=== PATIENT | male | born 1980 | race Caucasian/White ===

== ENCOUNTER 2020-05-12 16:22 | Outpatient (CLI) | payer OTHER, SELFPAY ==
--- NOTE | ~2020-05-12 | XR_ITS ---
EXAMINATION: XR chest 2V 05/12/2020 16:56 INDICATION: Chest pain and shortness of breath PROCEDURE: 2 view chest COMPARISON: Comparison to multiple prior studies sequentially, with oldest reviewed study dated 03/06. FINDINGS: The lungs are clear. The cardiomediastinal silhouette is within normal limits. There are no pleural effusions. There is no pneumothorax suspected. IMPRESSION: 1: NO ACUTE CARDIOPULMONARY DISEASE. Reviewed, dictated and finalized at location A.
== END 2020-05-12 16:23 | disposition home or self-care (01) ==
PROVIDERS: PCP Family Medicine; Visit Provider Physician Assistant
DX: R07.89 Other chest pain (principal)
CPT/HCPCS: 71046

== ENCOUNTER 2020-11-12 16:23 | Outpatient (CLI) | payer OTHER, SELFPAY ==
--- NOTE | ~2020-11-12 | CT_ITS ---
EXAMINATION: CT abdomen pelvis wo con DATE: 11/12/2020 17:04 INDICATION: Right lower quadrant pain TECHNIQUE: Computed tomography (CT) of the abdomen and pelvis was performed without intravenous contr ast. The dose-length product (DLP) was 1519.57 mGy-cm. Automated exposure control and iterative recon struction technique were employed. COMPARISON: 12/17/2008 FINDINGS: A chronic 4 mm nodule of the left lower lobe is consistent with old granulomatous disease. The heart size is normal. The liver, spleen, pancreas, gallbladder, and adrenal glands are normal. Th ere is chronic mild atrophy of the left kidney compared to the right. No stones are identified in the kidneys, ureters, or bladder. There is no hydronephrosis or hydroureter. No pathologically enlarged abdominal or pelvic lymph nodes are identified. There is no free intraperitoneal gas or evidence of b owel obstruction. The appendix is normal. There is mild lumbar spondylosis. There are fat-containing umbilical and periumbilical hernias. IMPRESSION: 1. No CT correlate for the patient's symptoms. 2. Chronic mild atrophy of the left kidney. Reviewed, dictated and finalized at location A. COOK
== END 2020-11-12 16:24 | disposition home or self-care (01) ==
PROVIDERS: PCP Family Medicine; Visit Provider Family Medicine
DX: R10.31 Right lower quadrant pain (principal); M47.816 Spondylosis without myelopathy or radiculopathy, lumbar region; K42.9 Umbilical hernia without obstruction or gangrene
CPT/HCPCS: 74176

== ENCOUNTER → 2021-11-21 11:30 | Outpatient (CLI) | payer OTHER, SELFPAY ==
--- NOTE | ~2021-11-21 | MR_ITS ---
EXAMINATION: MR lumbar spine wo con DATE: 11/21/2021 12:11 INDICATION: Lumbar radiculopathy. TECHNIQUE: Magnetic resonance imaging (MRI) of the lumbar spine was performed without intravenous con trast. Sequences included sagittal T2-weighted FSE, sagittal T2-weighted FS FSE, sagittal T1-weighted FSE, and axial T2-weighted FSE. COMPARISON: Lumbar spine MRI 08/18/2019, CT abdomen and pelvis 11/12/2020 FINDINGS: Bone alignment is normal. There are Schmorl's nodes of the superior endplates of L2 and L3. There are chronic bilateral L5 pars defects. Intervertebral disc heights are normal. The distal spin al cord signal intensity is normal. The conus medullaris is at T12-L1. There is moderate atrophy of l eft kidney. The following disc levels are specifically discussed: L1-L2: The disc does not extend beyond the endplate margin. There is no facet joint osteoarthritis. T here is no neural foraminal stenosis. There is no central canal stenosis. L2-L3: The disc does not extend beyond the endplate margin. There is mild bilateral facet joint osteo arthritis. There is no neural foraminal stenosis. There is no central canal stenosis. L3-L4: The disc does not extend beyond the endplate margin. There is mild bilateral facet joint osteo arthritis. There is no neural foraminal stenosis. There is no central canal stenosis. L4-L5: The disc does not extend beyond the endplate margin. There is mild left facet joint osteoarthr itis. There is no neural foraminal stenosis. There is no central canal stenosis. L5-S1: The disc is bulging and has an annular fissure. There is mild bilateral facet joint osteoarthr itis. There is mild bilateral neural foraminal stenosis. There is mild central canal stenosis. IMPRESSION: 1. Mild lumbar spondylosis, stable from 08/18/2019. 2. Chronic bilateral L5 pars defects. No spondylolisthesis. 3. Moderate atrophy of left kidney again seen. Reviewed, dictated and finalized at location B. LAINT CLERK
== END ==
PROVIDERS: PCP Family Medicine; Visit Provider Nurse Practitioner Family
DX: M54.16 Radiculopathy, lumbar region (principal); M47.816 Spondylosis without myelopathy or radiculopathy, lumbar region; N26.1 Atrophy of kidney (terminal)
CPT/HCPCS: 72148

== ENCOUNTER → 2022-06-18 10:45 | Outpatient (CLI) | payer OTHER, SELFPAY ==
--- NOTE | ~2022-06-18 | XR_ITS ---
XR lumbar spine 2-3V DATE: 06/18/2022 11:15 INDICATION: Low back pain TECHNIQUE: AP, lateral, coned lateral lumbosacral views COMPARISON: 11/21/2021 MR lumbar spine FINDINGS: Bilateral L5 pars interarticularis defects with grade 1 anterolisthesis at L5-S1. The lumbar vertebrae are otherwise normally aligned. No other fracture or bone destruction is detecte d. Included lower thoracic and lumbar pedicles are intact. Minimal degenerative spurring of the lumbar spine. The sacroiliac joints are unremarkable. IMPRESSION: Bilateral L5 pars interarticularis defects with grade 1 anterolisthesis at L5-S1 Reviewed, dictated and finalized at location B. IMPRESSION: Bilateral L5 pars interarticularis defects with grade 1 anterolisth esis at L5-S1
== END ==
PROVIDERS: PCP Family Medicine; Visit Provider Physician Assistant
DX: M47.817 Spondylosis without myelopathy or radiculopathy, lumbosacral region (principal)
CPT/HCPCS: 72100

== ENCOUNTER → 2022-11-26 11:08 | Outpatient (CLI) | payer OTHER, SELFPAY ==
--- NOTE | ~2022-11-26 | XR_ITS ---
EXAMINATION: XR facial bones min 3V INDICATION: Unspecified injury of the TECHNIQUE: Four views of the facial bones are obtained. COMPARISON: None available FINDINGS: No facial fracture is identified. The soft tissues are unremarkable. The paranasal sinuses are well pneumatized and aerated. IMPRESSION: 1. No facial fracture identified. If there is high clinical suspicion for facial fracture, facial bon e CT is recommended. Reviewed, dictated and finalized at location B. NOLOGY TEACHER IMPRESSION: 1. No facial fracture identified. If there is high clinical suspicion for facia l fracture, facial bone CT is recommended.
== END ==
PROVIDERS: PCP Family Medicine; Visit Provider Physician Assistant
DX: S09.92XA Unspecified injury of nose, initial encounter (principal); X58.XXXA Exposure to other specified factors, initial encounter
CPT/HCPCS: 70150

== ENCOUNTER → 2023-03-29 17:04 | Outpatient (CLI) | payer OTHER, SELFPAY ==
--- NOTE | ~2023-03-29 | XR_ITS ---
Left Shoulder Technique: AP and axillary views were obtained. Clinical History: Pain Findings: No fracture or dislocation is seen. Osseous alignment is anatomic. The glenohumeral and acr omioclavicular joint spaces are preserved. Soft tissues are unremarkable. Impression: Unremarkable left shoulder radiographs. Reviewed, dictated and finalized at [facility]. Impression: Unremarkable left shoulder radiographs.
== END ==
PROVIDERS: PCP Family Medicine; Visit Provider Physician Assistant
DX: M25.512 Pain in left shoulder (principal)
CPT/HCPCS: 73030

== ENCOUNTER 2023-12-02 13:58 | Outpatient (CLI) | payer OTHER, SELFPAY ==
[2023-12-02 14:25] LABS: Appearance Urine Clear (Clear); Bilirubin Urine Negative (Negative); Blood Urine Negative (Negative); Color Urine Yellow (Yellow); Glucose Urine UA Negative (Negative); Ketones Urine Trace mg/dL (Negative); Leukocyte Esterase Ur Negative LEU/UL (Negative); Nitrate Urine Negative (Negative); Protein Urine Negative (Negative); Specific Grav Ur 1.025 (1.001-1.035); pH Urine 5.5 (5.0-9.0)
[2023-12-02 14:27] LABS: Add Urine Microscopic? NO
[2023-12-02 14:33] LABS: Basophils Percent Auto 0.5 % (0.2-1.2); Eosinophils Absolute Auto 0.1 K/mm3 (0-0.3); Eosinophils Percent Auto 1.7 % (0-4.4); Hematocrit 50.2 % (42.0-52.0); Hemoglobin 16.6 g/dL (14.0-18.0); Immature Granulocyte Absolute 0.02 K/mm3 (0.00-0.031); Immature Granulocyte Percent A 0.3 % (0-0.5); Lymphocytes Absolute Auto 2.58 K/mm3 (0.9-3.2); Lymphocytes Percent Auto 39.5 % (18.3-44.2); Mean Corpuscular HGB Conc 33.1 g/dl (32-36); Mean Corpuscular Hemoglobin 30.3 pg (26-34); Mean Corpuscular Volume 91.8 fl (80-100); Mean Platelet Volume 9.7 fl (7.4-10.4); Monocytes Absolute Auto 0.6 K/mm3 (0.1-0.6); Monocytes Percent Auto 9.6 % (2.6-8.5); Neutrophils Absolute Auto 3.2 K/mm3 (1.3-6.7); Neutrophils Percent Auto 48.4 % (45.5-73.1); Platelet Count Result 244 k/mm3 (150-375); Red Blood Count 5.47 M/mm3 (4.6-6.20); Red Cell Distribution Width 12.8 % (11.5-14.5); White Blood Count 6.5 K/mm3 (4.5-10.0)
[2023-12-02 14:45] LABS: Alanine Aminotransferase 128 U/L (6-50); Albumin Level 4.3 g/dL (3.5-5.1); Alkaline Phosphatase 71 U/L (38-126); Anion Gap 8 mmol/L (8-16); Aspartate Amino Transferase 68 U/L (17-59); Bilirubin,Total 0.9 mg/dL (0.2-1.3); Blood Urea Nitrogen 12 mg/dL (9-20); Calcium 8.9 mg/dL (8.4-10.2); Carbon Dioxide 27 mmol/L (22-30); Chloride 104 mmol/L (98-107); Estimated Glomerular Filt Rate > 60; Glucose 86 mg/dL (65-110); Potassium 4.3 mmol/L (3.4-5.0); Sodium 139 mmol/L (137-145)
== END 2023-12-02 13:59 | disposition home or self-care (01) ==
PROVIDERS: PCP Family Medicine; Visit Provider Physician Assistant
DX: R10.2 Pelvic and perineal pain (principal); R11.0 Nausea; R30.0 Dysuria
CPT/HCPCS: 36415; 80053; 81003; 85025

== ENCOUNTER 2023-12-05 16:48 | Outpatient (CLI) | payer OTHER, SELFPAY ==
[2023-12-05 17:01] LABS: Appearance Urine Clear (Clear); Bilirubin Urine Negative (Negative); Blood Urine Negative (Negative); Color Urine Yellow (Yellow); Glucose Urine UA Negative (Negative); Ketones Urine Negative (Negative); Leukocyte Esterase Ur Negative LEU/UL (Negative); Nitrate Urine Negative (Negative); Protein Urine Negative (Negative); Specific Grav Ur 1.022 (1.001-1.035); pH Urine 6.5 (5.0-9.0)
[2023-12-05 17:05] LABS: Add Urine Microscopic? NO
== END 2023-12-05 16:49 | disposition home or self-care (01) ==
LOC: ANHLAB 16:49
PROVIDERS: PCP Family Medicine; Visit Provider Family Medicine
DX: N39.0 Urinary tract infection, site not specified (principal)
CPT/HCPCS: 81003

== ENCOUNTER → 2023-12-07 14:25 | Outpatient (CLI) | payer OTHER, SELFPAY ==
--- NOTE | ~2023-12-07 | CT_ITS ---
EXAMINATION: CT abdomen pelvis wo con DATE: 12/07/2023 14:48 INDICATION: Unspecified abdominal pain. TECHNIQUE: Computed tomography (CT) of the abdomen and pelvis was performed without intravenous contr ast. Automated exposure control and iterative reconstruction technique were employed. The dose-length product was 1335.67 mGy-cm. COMPARISON: CT abdomen and pelvis 11/12/2020 FINDINGS: The visualized portions of the lung bases demonstrate mild atelectasis. There is a chronic 5 mm nodule in left lower lobe, likely benign. No pleural effusion. The heart size is normal. No mitesh cardial effusion. There is diffuse hepatic steatosis. The gallbladder, spleen, pancreas, and adrenal glands are normal. There is cortical thinning of the kidneys, left worse than right. There is no urol ithiasis. There are no dilated loops of bowel. The appendix is normal. There are no pathologically en larged lymph nodes. There is no free intraperitoneal fluid. There is mild thoracic and lumbar spondyl osis. There are chronic bilateral L5 pars defects. IMPRESSION: 1. Diffuse hepatic steatosis. Reviewed, dictated and finalized at location E. D CROP FARM WORKER
== END ==
PROVIDERS: PCP Physician Assistant; Visit Provider Physician Assistant
DX: K76.0 Fatty (change of) liver, not elsewhere classified (principal); R11.0 Nausea
CPT/HCPCS: 74176

== ENCOUNTER 2024-02-24 01:22 | Day surgery (SDC) | payer OTHER, SELFPAY ==
[2024-02-09 14:37] VITALS: BMI 39.6
[2024-02-24 09:32] VITALS: BP 101/68; PULSE 109; RESP 20; TEMP 36.4; O2SAT 96; BMI 37.6
[2024-02-24] MEDS: LACTATED RINGERS 1,000 ML 150 ML IV CONT (09:43)
--- NOTE | 2024-02-24 09:53 | WPDANESEPPF ---
Anes - Initial Pre Proc Eval Procedure: Operation Date: 02/24/24 10:30 Proposed Procedures p Colonoscopy - Randolph Arzate MD Date/Time: 02/24/24 09:53 Surgeon: Randolph Arzate MD Pre Op Diagnosis: constipation,diarrhea,change in bowel habits Patient Data Age: 44 Gender: M Height: 1.85 m Weight: 129.5 kg Last Vital Signs Temp 36.4 C 02/24/24 09:32 Pulse 109 H 02/24/24 09:32 Resp 20 02/24/24 09:32 BP 101/68 02/24/24 09:32 Pulse Ox 96 02/24/24 09:32 O2 Del Method Room Air 02/24/24 09:32 Allergies Allergy/AdvReac Type Severity Reaction Status Date / Time gabapentin Allergy Unknown Sore Verified 02/24/24 09:31 throat symptom Sulfa (Sulfonamide Allergy Unknown Anaphylactic Verified 02/24/24 09:31 Antibiotics) Shock suvorexant Allergy Unknown throat Verified 02/24/24 09:31 swelling Home Medications Medication Instructions Recorded Confirmed Type esomeprazole magnesium 20 mg 20 mg PO DAILY 12/04/19 02/24/24 History capsule,delayed release albuterol sulfate 90 mcg/actuation 1 inh inhalation Q4H PRN shortness 11/26/22 02/24/24 Rx aerosol inhaler of breath or wheezing #6.7 grams budesonide-formoterol HFA 80 2 puff inhalation Q12H #10.2 grams 02/04/23 02/24/24 Rx mcg-4.5 mcg/actuation aerosol inhaler (Symbicort) cyclobenzaprine 5 mg tablet 5 mg PO TID PRN muscle spasm #30 09/12/23 02/24/24 Rx tabs sildenafil 50 mg tablet 50 mg PO DAILY PRN sexual activity 09/12/23 02/24/24 Rx #10 tabs alprazolam 0.25 mg tablet 0.25 mg PO DAILY #30 tabs 01/20/24 02/24/24 Rx Patient hx anesthesia problems: none Family hx anesthesia problems: none Results Review: All pre-operative results and documents have been reviewed as part of the pre-operative evaluation. [facility] Past Medical History Medical History (Updated 02/24/24 @ 09:54 by Albert Barrientos MD) Expiratory wheezing NOE (obstructive sleep apnea) Pressure in right side of chest Family History Family History Mother Patient's mother is in good health Father Patient's father is in good health Social History Social History Smoking packs per day: 0.25 Smoking cigarettes per day: 5.0 Years smoked: 24 Smoking pack-years: 6.00 Smoking status: Current every day smoker Tobacco type: e-cigarettes/vaping Second hand tobacco smoke exposure: No Alcohol intake: former Alcohol use details: monthly Substance use: current Substance use type: does not use Other substance usage details: edibles once or twice a week Living arrangements: with family Occupation/Education: occupation Gender identity (if verbalized by the patient): Male Sexual Orientation (if Verbalized by the Patient): Straight or Heterosexual Anes - Eval Final PreProcedure Day of Procedure 02/24/24 09:53 Patient weight: obese Heart: regular rate and rhythm Lungs: clear to auscultation Airway: Mallampati scale class II Neurological: alert and oriented Last oral intake: >/= 8 hours ASA classification: III Emergent: no Anesthetic plan: proceed Anesthesia type and monitoring: general GIVS and standard monitoring Results Review: All pre-operative results and documents have been reviewed as part of the pre-operative evaluation. Informed Consent: The patient's anesthetic plan and its attendant risks and benefits were discussed with the patient/family/POA. Questions were solicited and answers provided to the satisfaction of the patient/family/POA.
--- NOTE | 2024-02-24 10:19 | PM.HPGS ---
History of Present Illness History of Present Illness Consent: Risks, benefits, and alternatives have been discussed and questions answered. Patient agrees to proceed with procedure. Chief complaint: constipation,diarrhea,change in bowel habits Narrative: Domo Estes is a 44 year old male here for screening colonoscopy, had one about 10 years ago Review of Systems Review of Systems: All systems reviewed & are unremarkable except as noted in HPI and below PMFSH Past Medical History Medical History (Updated 02/24/24 @ 10:20 by Randolph Arzate MD) Colon cancer screening Expiratory wheezing NOE (obstructive sleep apnea) Pressure in right side of chest Family History Family History Mother Patient's mother is in good health Father Patient's father is in good health Social History Social History Smoking packs per day: 0.25 Smoking cigarettes per day: 5.0 Years smoked: 24 Smoking pack-years: 6.00 Smoking status: Current every day smoker Tobacco type: e-cigarettes/vaping Second hand tobacco smoke exposure: No Alcohol intake: former Alcohol use details: monthly Substance use: current Substance use type: does not use Other substance usage details: edibles once or twice a week Living arrangements: with family Occupation/Education: occupation Gender identity (if verbalized by the patient): Male Sexual Orientation (if Verbalized by the Patient): Straight or Heterosexual Meds Home Medications and Allergies Home Medications Medication Instructions Recorded Confirmed Type esomeprazole magnesium 20 mg 20 mg PO DAILY 12/04/19 02/24/24 History capsule,delayed release albuterol sulfate 90 mcg/actuation 1 inh inhalation Q4H PRN shortness 11/26/22 02/24/24 Rx aerosol inhaler of breath or wheezing #6.7 grams budesonide-formoterol HFA 80 2 puff inhalation Q12H #10.2 grams 02/04/23 02/24/24 Rx mcg-4.5 mcg/actuation aerosol inhaler (Symbicort) cyclobenzaprine 5 mg tablet 5 mg PO TID PRN muscle spasm #30 09/12/23 02/24/24 Rx tabs sildenafil 50 mg tablet 50 mg PO DAILY PRN sexual activity 09/12/23 02/24/24 Rx #10 tabs alprazolam 0.25 mg tablet 0.25 mg PO DAILY #30 tabs 01/20/24 02/24/24 Rx Allergies Allergy/AdvReac Type Severity Reaction Status Date / Time gabapentin Allergy Unknown Sore Verified 02/24/24 09:31 throat symptom Sulfa (Sulfonamide Allergy Unknown Anaphylactic Verified 02/24/24 09:31 Antibiotics) Shock suvorexant Allergy Unknown throat Verified 02/24/24 09:31 swelling Vital Signs Vital Signs - 24 hr 02/24/24 09:32 Temperature 97.6 F Pulse Rate 109 H Respiratory Rate 20 Blood Pressure 101/68 Pulse Oximetry 96 Oxygen Delivery Room Air Exam Const: General: comfortable and no acute distress HENMT: Face/Nose/Sinus: Normal nares present Eyes: General: appearance normal, both eyes and all related structures Neck: Neck: no JVD Resp: Auscultation: clear to auscultation bilaterally Cardio: Rate: regular rate Rhythm: regular rhythm GI: Inspection: non-distended GI Palp: Yes Soft to palpation Skin: General skin exam: normal color Neuro: General: gait normal Speech: normal speech Extrem: General: normal to inspection Psych: Mental Status: mental status grossly normal Assessment and Plan Assessment and plan (1) Colon cancer screening: Code(s): Z12.11 - Encounter for screening for malignant neoplasm of colon Status: Acute Assessment and Plan: colonoscopy
[2024-02-24 10:35] VITALS: BP 123/64; PULSE 95; RESP 20; O2SAT 96
[2024-02-24 10:45] VITALS: BP 115/79; PULSE 80; RESP 20; O2SAT 98
[2024-02-24 10:55] VITALS: BP 112/77; PULSE 72; RESP 17; O2SAT 100
== END 2024-02-24 11:00 | disposition home or self-care (01) ==
PROVIDERS: PCP Family Medicine; Visit Provider Internal Medicine Gastroenterology
PROC: 0DJD8ZZ Inspection of Lower Intestinal Tract, Via Natural or Artificial Opening Endoscopic (ICD-10-PCS; CPT 45378; principal; 2024-02-24 10:30)
DX: Z12.11 Encounter for screening for malignant neoplasm of colon (principal); D12.3 Benign neoplasm of transverse colon; G47.33 Obstructive sleep apnea (adult) (pediatric); F17.290 Nicotine dependence, other tobacco product, uncomplicated; E66.9 Obesity, unspecified; Z68.37 Body mass index [BMI] 37.0-37.9, adult; Z79.51 Long term (current) use of inhaled steroids
CPT/HCPCS: 45385; 88305; J2704; J7120

== ENCOUNTER 2024-02-29 16:37 | Emergency (ER) | payer OTHER, SELFPAY ==
--- NOTE | ~2024-02-29 | CT_ITS ---
EXAMINATION: CT abdomen pelvis w con DATE: 02/29/2024 17:43 INDICATION: Mid and low abdominal pain. TECHNIQUE: Computed tomography (CT) of the abdomen and pelvis was performed with 100 mL Omnipaque 350 intravenous contrast. Automated exposure control and iterative reconstruction technique were employe d. The dose-length product was 1459.78 mGy-cm. COMPARISON: CT abdomen and pelvis 12/07/23 FINDINGS: The visualized portions of the lung bases demonstrate calcified nodule in the left, consist ent with old granulomatous disease. No pleural effusion. The heart size is normal. No pericardial eff usion. There is diffuse hepatic steatosis. The gallbladder, spleen, pancreas, and adrenal glands are normal. There is cortical thinning of the kidneys, left worse than right. There are no dilated loops of bowel. The appendix is normal. There are no pathologically enlarged lymph nodes. There is no free intraperitoneal fluid. There is mild thoracic and lumbar spondylosis. There are chronic bilateral L5 pars defects. IMPRESSION: 1. Diffuse hepatic steatosis. Reviewed, dictated and finalized at location E.
[2024-02-29 16:38] VITALS: BP 130/99; PULSE 90; RESP 18; TEMP 36.4; O2SAT 97
--- NOTE | 2024-02-29 16:57 | ED.ABDPAIN ---
HPI - Abdominal Pain General Chief Complaint: Abdominal Pain <Swapnil Campbell APRN - Last Filed: 02/29/24 17:01> Stated Complaint: abd pain <Swapnil Campbell APRN - Last Filed: 02/29/24 17:01> Time Seen by Provider: 02/29/24 16:50 <Swapnil Campbell APRN - Last Filed: 02/29/24 17:01> Focused HPI: Isaiah is a 44-year-old male patient presenting to the ER today with complaints of mid lower abdominal pain with pain in his lower back. Reports he had a colonoscopy done on Tuesday. Developed constant pain feels as though someone is punching him repetitively in his abdomen and he feels nauseous in the morning. Symptoms started on Tuesday night. Denies any fever or chills. Is passing gas and belching. Last bowel movement was today and was like rat pellets. General: Well-developed, well nourished, in no apparent distress. Head: Normocephalic, atraumatic. Cardio: Regular rate and rhythm, s1 and s2 normal, no murmur appreciated. Resp: Clear to auscultation bilaterally, no rhonchi, rales, wheezing or rubs. Abdomen: Soft, pliable, bowel sounds present in all quadrants, tender to palpation over the mid lower abdomen no organomegly, no CVAT tenderness. Patient screened in triage and initial orders placed. Additional care and disposition to be based upon diagnostic testing and treatment. <Swapnil Campbell APRN - Last Filed: 02/29/24 17:01> Source: patient <Swapnil Campbell APRN - Last Filed: 02/29/24 17:01> Mode of arrival: ambulatory <Swapnil Campbell APRN - Last Filed: 02/29/24 17:01> Limitations: no limitations <Swapnil Campbell APRN - Last Filed: 02/29/24 17:01> Related Data Home Medications: Home Medications Medication Instructions Recorded Confirmed esomeprazole magnesium 20 mg 20 mg PO DAILY 12/04/19 02/24/24 capsule,delayed release <Swapnil Campbell APRN - Last Filed: 02/29/24 17:01> Allergies/Adverse Reactions: Allergies Allergy/AdvReac Type Severity Reaction Status Date / Time gabapentin Allergy Unknown Sore Verified 02/29/24 18:06 throat symptom Sulfa (Sulfonamide Allergy Unknown Anaphylactic Verified 02/29/24 18:06 Antibiotics) Shock suvorexant Allergy Unknown throat Verified 02/29/24 18:06 swelling <Swapnil Campbell APRN - Last Filed: 02/29/24 17:01> Review of Systems Review of Systems: All systems as dictated in HPI <Que Morrow PA-C - Last Filed: 02/29/24 20:04> [facility] Past Medical History Medical History: Medical History (Updated 02/29/24 @ 19:33 by Que Morrow PA-C) Colon cancer screening Expiratory wheezing NOE (obstructive sleep apnea) Pressure in right side of chest <Swapnil Campbell APRN - Last Filed: 02/29/24 17:01> Family History Family History: Family History Mother Patient's mother is in good health Father Patient's father is in good health <Swapnil Campbell APRN - Last Filed: 02/29/24 17:01> Social History Social History: Social History Smoking packs per day: 0.25 Smoking cigarettes per day: 5.0 Years smoked: 24 Smoking pack-years: 6.00 Smoking status: Current every day smoker Tobacco type: e-cigarettes/vaping Second hand tobacco smoke exposure: No Alcohol intake: former Alcohol use details: monthly Substance use: current Substance use type: does not use Other substance usage details: edibles once or twice a week Living arrangements: with family Occupation/Education: occupation Gender identity (if verbalized by the patient): Male Sexual Orientation (if Verbalized by the Patient): Straight or Heterosexual <CRISSY Minor Last Filed: 02/29/24 17:01> Comments At the time of my signature, I reviewed and agree with the nursing past medical, surgical, social, and family history. There is
[2024-02-29 17:09] LABS: Basophils Percent Auto 0.5 % (0.2-1.2); Eosinophils Absolute Auto 0.1 K/mm3 (0-0.3); Eosinophils Percent Auto 2.1 % (0-4.4); Hematocrit 48.9 % (42.0-52.0); Hemoglobin 16.7 g/dL (14.0-18.0); Immature Granulocyte Absolute 0.02 K/mm3 (0.00-0.031); Immature Granulocyte Percent A 0.3 % (0-0.5); Lymphocytes Absolute Auto 2.42 K/mm3 (0.9-3.2); Lymphocytes Percent Auto 39.5 % (18.3-44.2); Mean Corpuscular HGB Conc 34.2 g/dl (32-36); Mean Corpuscular Hemoglobin 30.4 pg (26-34); Mean Corpuscular Volume 89.1 fl (80-100); Mean Platelet Volume 9.6 fl (7.4-10.4); Monocytes Absolute Auto 0.4 K/mm3 (0.1-0.6); Monocytes Percent Auto 6.5 % (2.6-8.5); Neutrophils Absolute Auto 3.1 K/mm3 (1.3-6.7); Neutrophils Percent Auto 51.1 % (45.5-73.1); Platelet Count Result 236 k/mm3 (150-375); Red Blood Count 5.49 M/mm3 (4.6-6.20); Red Cell Distribution Width 12.3 % (11.5-14.5); White Blood Count 6.1 K/mm3 (4.5-10.0)
[2024-02-29 17:20] LABS: Alanine Aminotransferase 89 U/L (6-50); Albumin Level 4.5 g/dL (3.5-5.1); Alkaline Phosphatase 73 U/L (38-126); Anion Gap 7 mmol/L (4-12); Aspartate Amino Transferase 50 U/L (17-59); Bilirubin,Total 1.1 mg/dL (0.2-1.3); Blood Urea Nitrogen 13 mg/dL (9-20); Calcium 9.2 mg/dL (8.4-10.2); Carbon Dioxide 22 mmol/L (22-30); Chloride 107 mmol/L (98-107); Estimated CRCL calculation 128 ml/min; Estimated Glomerular Filt Rate > 60; Glucose 134 mg/dL (65-110); Lipase 153 U/L (23-300); Potassium 3.8 mmol/L (3.4-5.0); Sodium 136 mmol/L (137-145)
[2024-02-29 18:05] VITALS: BP 143/86; PULSE 72; RESP 15; O2SAT 100
[2024-02-29 18:19] LABS: Appearance Urine Clear (Clear); Bilirubin Urine Negative (Negative); Blood Urine Negative (Negative); Color Urine Yellow (Yellow); Glucose Urine UA Negative (Negative); Ketones Urine Trace mg/dL (Negative); Leukocyte Esterase Ur Negative LEU/UL (Negative); Nitrate Urine Negative (Negative); Protein Urine Negative (Negative); Urobilinogen Urine 0.2 mg/dL (<2.0); pH Urine 5.5 (5.0-9.0)
[2024-02-29 18:22] LABS: Add Urine Microscopic? NO; Specific Grav Ur 1.061 (1.001-1.035)
[2024-02-29] MEDS: KETOROLAC 30 MG/ML VIAL (*BKC) IV PUSH (18:43)
== END 2024-02-29 19:45 | disposition home or self-care (01) ==
LOC: ANHED 19:45
PROVIDERS: Nurse Practitioner Family; Emergency Provider Physician Assistant; PCP Family Medicine
DX: R10.30 Lower abdominal pain, unspecified (principal); K76.0 Fatty (change of) liver, not elsewhere classified; G47.33 Obstructive sleep apnea (adult) (pediatric); F17.290 Nicotine dependence, other tobacco product, uncomplicated
CPT/HCPCS: 36415; 74177; 80053; 81003; 83690; 85025; 99284; J1885; Q9967

== ENCOUNTER 2024-12-13 12:48 | Outpatient (CLI) | payer OTHER, SELFPAY ==
--- NOTE | ~2024-12-13 | CT_ITS ---
EXAMINATION: CT abdomen pelvis wo con DATE: 12/13/2024 13:14 INDICATION: Abnormal bowel syndrome. TECHNIQUE: Computed tomography (CT) of the abdomen and pelvis was performed without intravenous contr ast. Automated exposure control and iterative reconstruction technique were employed. The dose-length product was 1701.09 mGy-cm. COMPARISON: CT abdomen and pelvis 02/29/2024 FINDINGS: The visualized portions of the lung bases are clear without pneumonia or pleural effusion. The heart size is normal. There are coronary artery calcifications. No pericardial effusion. There is diffuse hepatic steatosis. The gallbladder, spleen, pancreas, and adrenal glands are normal. There i s cortical thinning of right kidney. There is moderate atrophy of left kidney. There is no urolithias is. There are no dilated loops of bowel. The appendix is normal. There are no pathologically enlarged lymph nodes. There is no free intraperitoneal fluid. There is mild thoracic and lumbar spondylosis. There are chronic bilateral L5 pars defects. IMPRESSION: 1. No etiology for the patient's symptoms. 2. Diffuse hepatic steatosis. Reviewed, dictated and finalized at location A. INE SIGN WRITER
--- OUTSIDE RECORDS SUMMARY | 2024-12-13 13:38 | XMS_ITS | Encounter Summary ---
Author Organization [facility] Healthcare Address [address] [place] [id number] Care Team Providers Care Manager Domestic Name Role Phone Bart Ramos MD Unavailable [phone] JaydeVincent ho MD Unavailable [phone] Sridevi Campos NP Unavailable [phone] Mayte Newby NP Primary Care Provider [phone] Reason for Visit * Reason Onset Date Comments Medical Question/Miscellaneous 12/03/2024 Encounter Details Date Type Department Care Team ([facility] Contact Info) Description 12/03/2024 Telephone [facility] Primary Care at [place] [address] [place] [address] Mayte Newby NP [address] [place] [address] [address] [place] [address] Medical Question/Miscellaneous Social History Tobacco Use Types Packs/Day Years Used Date Smoking Tobacco: Former Cigarettes 0.3 50.8 0 02/12/1997 - 02/21/2023 Smokeless Tobacco: Never Comments:Fully quit last yea r. Never going back AUDIT-C Answer Date Recorded Q1: How often do you have a drink containing alcohol? Monthly or less 12/03/2024 Q2: How many drinks containi ng alcohol do you have on a typical day when you are drinking? Patient does not drink Q3: How often do you have si x or more drinks on one occasion? Never 12/03/2024 PHQ-2 Answer Date Recorded PHQ-2 Total Score (If total score is 3 or more points, staff should administer the PHQ-9) 0 12/03/2024 Sex and Gender Information Value Date Recorded Sex Assigned at Not on file Legal Sex Male 4:07 AM KILN REMOVER Gender Identity Male 04/24/2019 8:46 AM CDT Sexual Orientation Not on file documented as of this encounter Miscellaneous Notes * Telephone Encounter - Karen Luis MA - 12/04/2024 8:50 AM CST Called [facility] and let them know it is ok to fill and that Mayte YEUNG is changing his prescription. Verbalized understanding. REMOVER * Telephone Encounter - Monserrat Peterson MA - 12/03/2024 11:37 AM CST Reason for Warm Transfer:Provider to Provider Calls Marisa with [facility] called stating patient picked up Alprazolam 3 days ago. Should they fill Lorazepam that was prescribed at today's appointment? He is not at Pharmacy yet but she does not want to fill for patient until she hears from the office. Practice Accepted the Warm Transfer? No Additional Comments If NO above and practice did not answer after 2 attempts for 5 rings each REMOVER documented in this encounter Plan of Treatment Not on file documented as of this encounter Visit Diagnoses Not on filedocumented in this encounter Care Teams Manager Domestic Relationship Specialty Start Date End Date Mayte Newby NP [address] [facility] [address] [place] [address] PCP - General Family Medicine 12/03/24 Bart Ramos MD [address] [place] [address] Consulting Physician Rheumatology 01/06/18 Vincent Donohue MD [address] [place] [address] Referring Physician Neuromuscular Medicine 05/29/19 Sridevi Campos NP [address] [place] [address] Nurse Practitioner Pain Management 05/29/19 documented as of this encounter
--- OUTSIDE RECORDS SUMMARY | 2024-12-13 13:38 | XMS_ITS | Encounter Summary ---
Author Organization [facility] Healthcare Address [address] [place] [address] Care Team Providers Care Traffic Chief Name Role Phone Bart Ramos MD Unavailable [phone] JaydeVincent ho MD Unavailable [phone] Sridevi Campos NP Unavailable [phone] Mayte Newby NP Primary Care Provider [phone] Reason for Referral * Diagnostic Imaging (Routine) - Authorized Specialty Diagnoses / Procedures Referred By Kenisha hoang Referred To Contact Diagnoses Irritable bowel syndrome without diarrhea Colicky left lower quadrant pain Procedures CT Abdomen Pelvis WO Contrast Mayte Newby, ANJANA [address] [facility] [address] [place] [address] Phone: tel: fax: [facility] [address] [facility] [address] [place] [address] Phone: tel: fax: Referral ID Status Reason Start Date Expiration Date V isits Requested Visits Authorized [id number] Authorized 12/13/2024 01/12/2026 1 1 HANGER Reason for Visit * Reason Comments Abdominal Cramping Abdominal cramping, bloating, constipated, gas, hemorrhoid, no appetite, not sleeping. Patient is hydrating and using stool softenersPatient has appt with GI in April Encounter Details Date Type Department Care Team (Late st Contact Info) Description 12/13/2024 11:30 AM ROD HANGER Office Visit [facility] Primary Care at [address] [phone] Mayte Newby NP [address] [place] [address] [address] [place] [address] Irritable bowel syndrome without diarrhea (Primary Dx); Colicky left lower quadrant pain Social History Tobacco Use Types Packs/Day Years Used Date Smoking Tobacco: Former Cigarettes 0.3 50.8 0 02/12/1997 - 02/21/2023 Smokeless Tobacco: Never Comments:Fully quit last elder rLeti Never going back AUDIT-C Answer Date Recorded [...] on file Legal Sex Male 4:07 AM ROD HANGER Gender Identity Male 04/24/2019 8:46 AM CDT Sexual Orientation Not on file documented as of this encounter Last Filed Vital Signs Vital Sign Reading Time Taken Comments Blood Pressure 122/86 12/13/2024 11:21 AM ROD HANGER Pulse 101 12/13/2024 11:21 AM ROD HANGER Temperature 36.6 ??C (97.8 ??F) 12/13/2024 11:[address] Respiratory Rate 18 12/13/2024 11:21 AM ROD HANGER Oxygen Saturation 97% 12/13/2024 11:21 AM ROD HANGER Inhaled Oxygen Concentration - - Weight 132 kg (291 lb 1.6 oz) 12/13/2024 11:21 A M ROD HANGER Height 185.4 cm (6' 1 ) 12/13/2024 11:21 AM ROD HANGER Body Mass Index 38.41 12/13/2024 11:21 AM ROD HANGER documented in this encounter Ordered Prescriptions Prescription Sig Dispense Quantity Refills Last Filled Start Date End Date nortriptyline (PAMELOR) 25 mg capsule Take 1 capsule (25 mg total) by mouth nightly 30 capsule 3 5 04/12/20 25 hyoscyamine ER (LEVBID) 0.375 mg 12 hr tabletIndications :diarrhea Take 1 tablet (0.375 mg total) by mouth every 12 (twelve) hours as needed for cramping 60 tablet 1 5 hydrocortisone (ANUSOL-HC) 25 mg suppository Insert 1 suppository (25 mg total) into the rectum 2 (two) times a day as needed for hemorrhoids 12 suppository 1 5 12/13/19 26 documented in this encounter Miscellaneous Notes * Assessment & Plan Note - Mayte Newby NP - 12/13/2024 1:00 PM CSTAssociated Problem(s): Irritable bowel syndrome without diarrhea I could not find any previous labs or workup for inflammatory bowel disease or rule out celiac. I ordered a few labs today. He did have a negative colonoscopy that I found in his records on his phonefrom 2023. We are going to get a stat CT of the abdomen and pelvis today. I started him on nortriptyline 25 mg at bedtime. I gave him Levbid to use b.i.d. p.r.n. for abdominal cramping. HANGER * Assessment & Plan Note - Mayte Newby NP - 12/13/2024 12:54 PM CSTAssociated Problem(s): Colicky left lower quadrant pain Negative CT abd/pelvis in 11/2023 and I found another negative CT for right lower quadrant abd. Painin 2019 in old records on patient's phone from [place]. We are working on getting these on paper and scanned into our EHR. I discussed options with him. He is still having left lower abdominal pain on exam today. I can not rule out diverticulitis today. We will get another CT of the abdomen and pelvis today. Get CBC and labs today. Did schedule a GI appointment in April. HANGER documented in this encounter Plan of Treatment Scheduled Orders Name Type Priority Associated Diagnoses Orde r Schedule CT Abdomen Pelvis WO Contrast Imaging Schedule GÉNESIS, Read GÉNESIS (Appt Today, Awaiting Results) Irritable bowel syndrome without diarrhea Colicky left lower quadrant pain Expected: 12/13/2024, Expires: 12/13/2025 Calprotectin, fecal Lab Routine Irritable bowel syndrome without diarrhea Colicky left lower quadrant pain Expected: 12/13/2024, Expires: 12/13/2025 Celiac reflex panel Lab Routine Irritable bowel syndrome without diarrhea Colicky left lower quadrant pain Expected: 12/16/2024, Expires: 12/13/2025 CBC with auto differential Lab Routine Irritable bowel syndrome without diarrhea Colicky left lower quadrant pain Expected: 12/13/2024, Expires: 12/13/2025 documented as of this encounter Visit Diagnoses Diagnosis Irritable bowel syndrome without diarrhea- Primary Colicky left lower quadrant pain documented in this encounter Care Teams Traffic Chief Relationship Specialty Start Date End Date Mayte Newby NP [address] [facility] [address] [place] [id number] PCP - General Family Medicine 12/03/24 Bart Ramos MD [address] [place] [address] Consulting Physician Rheumatology 01/06/18 Vincent Donohue MD [address] [place] [address] Referring Physician Neuromuscular Medicine 05/29/19 Sridevi Campos NP [address] [place] [address] Nurse Practitioner Pain Management 05/29/19 documented as of this encounter
--- OUTSIDE RECORDS SUMMARY | 2024-12-13 13:38 | XMS_ITS | Clinical Summary ---
Author Organization [facility] [address] [facility] Address [address] [place] [address] Phone Care Team Providers Care Business Analyst Project Manager Name Role Phone Bart Ramos MD Unavailable [phone] Vincent Donohue MD Unavailable [phone] Sridevi Campos PACS ADMINISTRATOR Unavailable [phone] Mayte Newby NP Primary Care Provider [phone] Allergies Active Allergy Reactions Criticality Noted Date Comments Leflunomide Fatigue Low 01/19/2018 Methotrexate Headache Low 01/19/2018 Sulfa (Sulfonamide Antibiotics) Swelling Medium 06/[address] (NexIUM) 20 mg capsule Take 1 capsule (20 mg total) by mouth daily before breakfast Active LORazepam (ATIVAN) 0.5 mg tablet Take 1 tablet (0.5 mg total) by mouth nightly as needed for anxiety 30 tablet 1 12/03/19 25 Active hydrocortisone (ANUSOL-HC) 25 mg suppository Insert 1 suppository (25 mg total) into the rectum 2 (two) times a day as needed for hemorrhoids 12 suppository 1 12/13/19 25 026 Active hyoscyamine ER (LEVBID) 0.375 mg 12 hr tabletIndicatio ns:diarrhea Take 1 tablet (0.375 mg total) by mouth every 12 (twelve) hours as needed for cramping 60 tablet 1 12/13/19 25 Active nortriptyline (PAMELOR) 25 mg capsule Take 1 capsule (25 mg total) by mouth nightly 30 capsule 3 12/13/19 25 025 Active ALPRAZolam (XANAX) 0.25 mg tablet TK 1 T PO QD 0 01/24/20 18 025 Discontin ued(Alter saloni therapy) Symbicort 80-4.5 mcg/actuation inhaler INL 2 PFS PO Q 12 H 07/31/20 20 025 Discontin ued(Patie nt Reported) Active Problems Problem Noted Date Diagnosed Date Colicky left lower quadrant pain 12/13/2024 Assessment & Plan (12/13/2024 12:54 PM CHIEF WRITER): Negative CT abd/pelvis in 11/2023 and I found another negative CT for right lower quadrant abd. Pain in 2019 in old records on patient's phone from [place]. We are working on getting these on paper and scanned into our EHR. I discussed options with him. He is still having left lower abdominal pain on exam today. I can not rule out diverticulitis today. We will get another CT of the abdomen and pelvis today. Get CBC and labs today. Did schedule a GI appointment in April. Irritable bowel syndrome without diarrhea 2024 Assessment & Plan (12/13/2024 1:00 PM CHIEF WRITER): I could not find any previous labs or workup for inflammatory bowel disease or rule out celiac. I ordered a few labs today. He did have a negative colonoscopy that I found in his records on his phone from 2023. We are going to get a stat CT of the abdomen and pelvis today. I started him on nortriptyline 25 mg at bedtime. I gave him Levbid to use b.i.d. p.r.n. for abdominal cramping. Gastroesophageal reflux disease without esophagi tis 12/03/2024 Assessment & Plan (12/03/2024 10:44 AM CHIEF WRITER): Stable on current medication. Continue esomeproazole as ordered. May follow up in 6 months Psychophysiological insomnia 12/03/2024 Assessment & Plan (12/03/2024 11:11 AM CHIEF WRITER): He is using Xanax p.r.n. at bedtime for insomnia. I discussed that I do not usually prescribe Xanax. We discussed the actually be much better to get him off of benzodiazepines but if we are using benzodiazepines I would prefer lorazepam or clonazepam. Room going to try switching him to lorazepam 0.5 mg at bedtime as needed. He is going to update me on how this works for him. Going to have him follow-up in 6 months for physical and med check I checked their [place] INKING MACHINE TENDER sheet, and it was consistent with prescribed medications. Anxiety 12/03/2024 Hypertriglyceridemia 12/03/2024 Small fiber neuropathy 03/08/2019 Assessment & Plan (12/03/2024 10:44 AM CHIEF WRITER): No flare-ups for many years. No longer seeing any specialists. Polyarthralgia 01/19/2018 Overview (01/09/2019): Stiffness/discomfort in pip joints; no swelling; no real pain; no other joint issues; no AM stiffness and feels best in AM Anti-ccp ab 24 MTX caused severe frontal headache leflunomide caused severe fatigue Prednisone 15 mg daily caused muscle cramps and no benefit Vectra (01/19/18): 35 Xray bilat wrists/ankles (08/2017): wnl US left hand/wrist (01/01/19): Mild effusions on examination which will have to be correlated clinically. Grade 1 effusion in the volar 3rd and 4th MCP joints. Moderate synovial thickening in the wrist, 3rd and 4th MCP and 2nd PIP joints. Mild synovial thickening in the 2nd and 5thMCP and 3rd PIP joints. US right hand/wrist (02/03/18): Mild synovitis with effusions, synovial thickening. Findings limited to the radial/scaphoid joint and volar 4th MCP joint with grade 1 effusions. Synovial thickening seen in the 2nd-4th MCP joints and 2nd, 3rd PIP joints. The remaining examination is essentially unremarkable. US right foot/ankle (01/09/19): Mild effusions and power doppler which will have to be correlated clinically. Grade 1 effusion in the 1st and 4th MTP joints. Grade 1 power doppler in the 5th MTP joint. A mildly enlarged plantar fascia is seen. Assessment & Plan (02/09/2019 4:38 PM CDT): Pt returns for reevaluation given repeat ccp with weak positive value at 29 and worsening pain complaints. The stiffness in his hands/feet is unchanged. Our workup did not reveal a positive CCP nor a positive RF. It did show +DEBBI 1:160 homogeneous, dsDNA 345 (not confirmed by [facility]), anti-cardiolipin IgG (26), and TPO IgG (89). Xray of his C and L spine showed only degenerative changes, SI joints negative. An ultrasound of his L hand and his R foot/ankle showed mild effusion and power doppler with synovial thickening. Overall this may represent an early inflammatory arthritis, though the ultrasound findings are fairly mild and it is notable that he has had no improvement with recent course of steroids. At this time there is not sufficient evidence to warrant treatment. Will plan for follow up as needed should symptoms progress. Assessment & Plan (01/12/2019 4:44 PM CHIEF WRITER): Pt returns for reevaluation given repeat ccp with weak positive value at 29 and worsening pain complaints. The stiffness in his hands/feet is unchanged, but over the last 6-7 months complains of widespread burning pain. Notably, he has been treated with amitriptyline 25 mg qhs, nortriptyline 50 mg qhs, duloxetine 20 mg qhs, and gabapentin 100 mg once daily in the past without significant relief at those low doses. Recently has been on a Medrol Dosepak for bronchitis without any improvement in his joint complaints which goes against any inflammatory arthritis as the source of these complaints. Our workup did not reveal a positive CCP nor a positive RF. It did show +DEBBI 1:160 homogeneous, dsDNA 345 (not confirmed by [facility]), anti-cardiolipin IgG (26), and TPO IgG (89). Xray of his C and L spine showed only degenerative changes. An ultrasound of his L hand and his R foot/ankle showed mild effusion and power doppler with synovial thickening. Overall this may represent an early inflammatory arthritis, though the ultrasound findings are fairly mild and it is notable that he has had no improvement with recent course of steroids. On exam today he localizes his low back pain to his SI joints, thus will obtain XR of his SI joints to complete workup. For now, will initiate treatment with diclofenac 75 mg bid with plan for follow up in 1 month to reevaluate. Assessment & Plan (12/22/2018 1:53 PM CHIEF WRITER): Pt returns for reevaluation given repeat ccp with weak positive value at 29 and worsening pain complaints. The stiffness in his hands/feet is unchanged, but over the last 6-7 months complains of widespread burning pain. Notably, he has been treated with amitriptyline 25 mg qhs, nortriptyline 50 mg qhs, duloxetine 20 mg qhs, and gabapentin 100 mg once daily in the past without significant relief at those low doses. Certainly a persistent elevation in the ccp Ab is unusual and warrants reinvestigation, will recheck serologies as well as ultrasound the hand and foot. He complains of pain in his neck and low back without recent xrays, will obtain these now. Plan for follow up in 2 weeks to review results and to discuss treatment options. Assessment & Plan (02/07/2018 3:14 PM CDT): Hands ache and are stiff at times over pip joints although no real joint pain. US right hand/wrist did not reveal any significant inflammatory changes. Serology unremarkable although the anti-ccp ab which had been a low positive at 24 in past was not drawn by lab as ordered. Pt with no sig joint complaints currently and no synovitis on exam. My suspicion for RA or other inflammatory arthritis is low at this time based on history, exam findings, and US findings although there is still some uncertainty with the previous low positive anti-ccp ab. Will obtain anti-ccp ab and DEBBI panel as ordered last visit and not drawn by lab. Will contact pt over phone regarding results. If labs neg no specific intervention warranted. If anti-ccp ab still low positive will likely have him come back in 6 months and repeat labs and US right hand/wrist. Assessment & Plan (01/19/2018 4:19 PM CHIEF WRITER): Has intermittent stiffness/achiness in PIP joints although no real pain. Has no swelling. Was diagnosed with RA by Dr. Vega in Aug 2017 based on positive anti- ccp ab at 24. Was placed on prednisone 15 mg daily which caused muscle cramps and offered no benefit. Had been on MTX was caused severe frontal headaches and leflunomide which caused severe fatigue. Has not been on other dmards or biologics. Has not been on any specific treatment in 2-3 months. Other than finger discomfort has no other joint complaints. Has no obvious synovitis on exam and no current tenderness. Does not look like RA clinically although may be early manifestation with the low positive anti-ccp ab. It is possible the low positive anti-ccp ab is a false positive as well. Is noted xray bilat wrists and ankles were unremarkable from aug 2017. Will obtain labs as below. Obtain US left hand/wrist to look for inflammatory changes. Is noted pt is not using any analgesics. F/u 2 weeks. Myalgia 01/19/2018 Overview (01/19/2018): Intermittent cramping and pain in calves. Symptoms fluctuate. Assessment & Plan (12/22/2018 1:58 PM CHIEF WRITER): As above Assessment & Plan (01/19/2018 4:27 PM CHIEF WRITER): Has cramping pain in calves intermittently and not associated with activity although is worse as day goes on. Symptoms fluctuate and are not constant. Denies any weakness. Uncertain etiology at this point and exam findings minimal currently. Abnormal laboratory test result 01/19/2018 Overview (01/19/2018): Anti-ccp ab 24 per labs Aug 2017 Assessment & Plan (12/22/2018 1:50 PM CHIEF WRITER): Anti-ccp Ab 06 Sep 2017, weak positive found again on labs Nov 2018 at 29. 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 This was ordered to be rechecked last visit although was not drawn by lab. Will have drawn today. Assessment & Plan (01/19/2018 4:29 PM CHIEF WRITER): Anti-ccp ab 24 per labs in Aug 2017. Uncertain significance of this low positive value although may represent early RA although at this time I see no obvious clinical evidence of RA or other inflammatory process. Will repeat serology and obtain US left hand/wrist to look for inflammatory changes. Encounters Date Type Department Care Team Description 12/13/2024 12:00 PM CHIEF WRITER Lab [facility] Outpatient Lab at [address] [phone] Gastroesophageal reflux disease without esophagitis (Primary Dx) 12/13/2024 11:30 AM CHIEF WRITER Office Visit [facility] Primary Care at [address] [phone] Mayte Newby NP Irritable bowel syndrome without diarrhea (Primary Dx); Colicky left lower quadrant pain 12/10/2024 Orders Only [facility] Primary Care at [address] [phone] Mayte Newby NP Chronic constipation (Primary Dx); Abdominal pain 12/03/2024 10:30 AM CHIEF WRITER Office Visit [facility] Primary Care at [address] [phone] Mayte Newby NP Gastroesophageal reflux disease without esophagitis (Primary Dx); Psychophysiological insomnia; Anxiety 12/03/2024 Telephone [facility] Primary Care at [address] [phone] Mayte Newby NP Medical Question/Miscellaneous from Last 3 Months Immunizations Name Administration Dates Next Due Influenza, Quadrivalent, Spl it, Preservative Free, Intramuscular 11/09/2023 Influenza, Trivalent, IM (MDV) 09/11/2021 Medical History Medical History Date Comments GERD (gastroesophageal reflux disease) 2009 Anxiety 2011 Neuromuscular disorder (HCC) 2017 Sleep apnea 2012 Family History Medical History Relation Name Comments Heart disease Father Relation Name Status Comments Father Social History Tobacco Use Types Packs/Day Years [...] on file Legal Sex Male 4:07 AM CHIEF WRITER Gender Identity Male 04/24/2019 8:46 AM CDT Sexual Orientation Not on file Obstetrics History Last Filed Vital Signs Vital Sign Reading Time Taken Comments Blood Pressure 122/86 12/13/2024 11:21 AM CHIEF WRITER Pulse 101 12/13/2024 11:21 AM CHIEF WRITER Temperature 36.6 ??C (97.8 ??F) 12/13/2024 11:[address] Respiratory Rate 18 12/13/2024 11:21 AM CHIEF WRITER Oxygen Saturation 97% 12/13/2024 11:21 AM CHIEF WRITER Inhaled Oxygen Concentration - - Weight 132 kg (291 lb 1.6 oz) 12/13/2024 11:21 A M CHIEF WRITER Height 185.4 cm (6' 1 ) 12/13/2024 11:21 AM CHIEF WRITER Body Mass Index 38.41 12/13/2024 11:21 AM CHIEF WRITER Plan of Treatment Health Maintenance Due Date Last Done Comments DTaP/Tdap/Td Vaccine (1 - Tdap) 1989 Hepatitis B Screening 1996 Regular Well Visit/Exam 18-64 1996 Covid-19 Vaccine (2023-2 5 season) 2024 11/09/2023, 09/11/2021, 01/20/2021 Influenza Vaccine (#1) 2024 , 09/11/2021 Depression Screening 12/03/2025 12/03/2024 Colon Cancer Screening-Colonoscopy 02/23/2034 02/24/2024 Hepatitis C Screening Completed 01/19/2018 HPV Vaccines Aged Out No longer eligi ble based on patient's age to complete this topic Pneumococcal vaccine <65 Aged Out No longer eligible based on patient's age to complete this topic Procedures Procedure Name Priority Date/Time Associated Diagnosis Comments HEPATITIS C ANTIBODY Routine 01/19/2018 3:57 PM CHIEF WRITER from Last 3 Months or Most Recently Relevant to Health Maintenance Results * Hepatitis C antibody (01/19/2018 3:57 PM CHIEF WRITER) Hep C Ab Non-Reactiv e Non-Reactiv e [facility] Blood specimen (specimen) 01/19/2018 3:57 PM CHIEF WRITER 01/19/2018 9:03 PM CHIEF WRITER Narrative [facility] - 01/19/2018 9:55 PM CHIEF WRITER Bart Ramos MD LAB MICROBIOLOGY - GENER AL ORDERABLES Final Result [facility] [address] Department [place] [address] from Last 3 Months or Most Recently Relevant to Health Maintenance [place] [address] [place] [address] CHOICE PLUS [facility] CHOICE PLUS [facility] CHOICE PLUS [facility] CHOICE PLUS Care Teams Business Analyst Project Manager Relationship Specialty Start [place] [address] [address] PCP - General Family Medicine 12/03/24 Bart Ramos MD [address] [place] [address] Consulting Physician Rheumatology 01/06/18 Vincent Donohue MD [address] [place] [address] Referring Physician Neuromuscular Medicine 05/29/19 Sridevi Campos, PACS ADMINISTRATOR [address] [place] [address] Nurse Practitioner Pain Management 05/29/19
--- OUTSIDE RECORDS SUMMARY | 2024-12-13 13:38 | XMS_ITS | Encounter Summary ---
Author Organization [facility] Address [address] [place] [address] Phone Care Team Providers Care Signal Maintainer Name Role Phone Joseph Kolb MD Primary Care Provider Bart Ramos MD Unavailable [phone] JaydeVincent ho MD Unavailable [phone] Sridevi Campos NP Unavailable [phone] Mayte Newby NP Primary Care Provider [phone] Encounter Details Date Type Department Care Team (Late st Contact Info) Description 02/07/2018 Orders Only [facility] ProviderElvin MD [address] [place] [id number] Social History Tobacco Use Types Packs/Day Years Used Date Smoking Tobacco: Never Assessed Sex and Gender Information Value Date Recorded Sex Assigned at Not on file Legal Sex Male 4:07 AM HYDRO SPRAYER OPERATOR Gender Identity Male 04/24/2019 8:46 AM CDT Sexual Orientation Not on file documented as of this encounter Plan of Treatment Not on file documented as of this encounter Procedures Procedure Name Priority Date/Time Associated Diagnosis Comments DISCHARGE LABORATORY CUMULATIVE REPORT 02/07/2018 12:00 AM CDT documented in this encounter Results * DISCHARGE LABORATORY CUMULATIVE REPORT (02/07/2018 12:00 AM CDT) Narrative 02/07/2018 12:00 AM CDT Ordered by an unspecified provider. us Historical Provider LAB BLOOD ORDERABLES Abby l Result documented in this encounter Visit Diagnoses Not on filedocumented in this encounter Care Teams Signal Maintainer Relationship Specialty Start Date End Date Joseph Kolb MD [address] [place] [address] PCP - General 04/23/16 12/02/24 Mayte Newby NP [address] [facility] [address] [place], [place] [id number] PCP - General Family Medicine 12/03/24 Bart Ramos MD [address] [place] [address] Consulting Physician Rheumatology 01/06/18 Vincent Donohue MD [address] [place] [address] Referring Physician Neuromuscular Medicine 05/29/19 Sridevi Campos NP [address] [place] [address] Nurse Practitioner Pain Management 05/29/19 documented as of this encounter
--- OUTSIDE RECORDS SUMMARY | 2024-12-13 13:38 | XMS_ITS | Encounter Summary ---
Author Organization [facility] Address [address] [place] [address] Phone Care Team Providers Care Check Examiner Name Role Phone Joseph Kolb MD Primary Care Provider Bart Ramos MD Unavailable [phone] JaydeVincent ho MD Unavailable [phone] Sridevi Campos NP Unavailable [phone] Mayte Newby NP Primary Care Provider [phone] Encounter Details Date Type Department Care Team (Late st Contact Info) Description 01/19/2018 Orders Only [facility] ProviderElvin MD [address] [place] [id number] Social History Tobacco Use Types Packs/Day Years Used Date Smoking Tobacco: Never Assessed Sex and Gender Information Value Date Recorded Sex Assigned at Not on file Legal Sex Male 4:07 AM LEAD OPERATOR Gender Identity Male 04/24/2019 8:46 AM CDT Sexual Orientation Not on file documented as of this encounter Plan of Treatment Not on file documented as of this encounter Procedures Procedure Name Priority Date/Time Associated Diagnosis Comments DISCHARGE LABORATORY CUMULATIVE REPORT 01/19/2018 12:00 AM LEAD OPERATOR documented in this encounter Results * DISCHARGE LABORATORY CUMULATIVE REPORT (01/19/2018 12:00 AM LEAD OPERATOR) Narrative 01/19/2018 12:00 AM LEAD OPERATOR Ordered by an unspecified provider. us Historical Provider LAB BLOOD ORDERABLES Abby l Result documented in this encounter Visit Diagnoses Not on filedocumented in this encounter Care Teams Check Examiner Relationship Specialty Start Date End Date Joseph Kolb MD [address] [place] [address] PCP - General 04/23/16 12/02/24 Mayte Newby NP [address] [place], [place] [id number] PCP - General Family Medicine 12/03/24 Bart Ramos MD [address] [place] [address] Consulting Physician Rheumatology 01/06/18 Vincent Donohue MD [address] [place] [address] Referring Physician Neuromuscular Medicine 05/29/19 Sridevi Campos NP [address] [place] [address] Nurse Practitioner Pain Management 05/29/19 documented as of this encounter
--- OUTSIDE RECORDS SUMMARY | 2024-12-13 13:38 | XMS_ITS | Referral Summary ---
Author Organization [facility] [address] [facility] Address [address] [place] [address] Phone Care Team Providers Care Television Equipment Operator Name Role Phone Bart Ramos MD Unavailable [phone] Vincent Donohue MD Unavailable [phone] Sridevi Campos NP Unavailable [phone] Mayte Newby NP Primary Care Provider [phone] Encounters Date Type Department Care Team Description 12/13/2024 12:00 PM LAND SURVEYING PARTY CHIEF Lab [facility] Medical [facility] Outpatient Lab at [address] [address] Gastroesophageal reflux disease without esophagitis (Primary Dx) 12/13/2024 11:30 AM LAND SURVEYING PARTY CHIEF Office Visit [facility] Medical Group Primary Care at [address] [address] Mayte Newby NP Irritable bowel syndrome without diarrhea (Primary Dx); Colicky left lower quadrant pain 12/10/2024 Orders Only [facility] Primary Care at [address] [address] Mayte Newby NP Chronic constipation (Primary Dx); Abdominal pain 12/03/2024 Telephone [facility] Primary Care at [address] [address] Mayte Newby NP Medical Question/Miscellaneous 12/03/2024 10:30 AM LAND SURVEYING PARTY CHIEF Office Visit [facility] Medical [facility] Primary Care at [address] [address] Mayte Newby NP Gastroesophageal reflux disease without esophagitis (Primary Dx); Psychophysiological insomnia; Anxiety from Last 3 Months Allergies Active Allergy Reactions Criticality Noted Date [...] 12/13/2024 Assessment & Plan (12/13/2024 12:54 PM LAND SURVEYING PARTY CHIEF): Negative CT abd/pelvis in 11/2023 and I found another negative CT for right lower quadrant abd. Pain in 2019 in old records on patient's phone from [place]. We are working on getting these on [...] 2024 Assessment & Plan (12/13/2024 1:00 PM LAND SURVEYING PARTY CHIEF): I could not find any previous labs [...] 12/03/2024 Assessment & Plan (12/03/2024 10:44 AM LAND SURVEYING PARTY CHIEF): Stable on current medication. Continue esomeproazole as ordered. May follow up in 6 months Psychophysiological insomnia 12/03/2024 Assessment & Plan (12/03/2024 11:11 AM LAND SURVEYING PARTY CHIEF): He is using Xanax p.r.n. at bedtime [...] and med check I checked their [place] DETAILER FURNITURE sheet, and it was consistent with prescribed medications. Anxiety 12/03/2024 Hypertriglyceridemia 12/03/2024 Small fiber neuropathy 03/08/2019 Assessment & Plan (12/03/2024 10:44 AM LAND SURVEYING PARTY CHIEF): No flare-ups for many years. No longer [...] progress. Assessment & Plan (01/12/2019 4:44 PM LAND SURVEYING PARTY CHIEF): Pt returns for reevaluation given repeat ccp [...] reevaluate. Assessment & Plan (12/22/2018 1:53 PM LAND SURVEYING PARTY CHIEF): Pt returns for reevaluation given repeat ccp [...] hand/wrist. Assessment & Plan (01/19/2018 4:19 PM LAND SURVEYING PARTY CHIEF): Has intermittent stiffness/achiness in PIP joints although [...] fluctuate. Assessment & Plan (12/22/2018 1:58 PM LAND SURVEYING PARTY CHIEF): As above Assessment & Plan (01/19/2018 4:27 PM LAND SURVEYING PARTY CHIEF): Has cramping pain in calves intermittently and not associated with activity although is worse as day goes on. Symptoms fluctuate and are not constant. Denies any weakness. Uncertain etiology at this point and exam findings minimal currently. 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 This was ordered to be rechecked last visit although was not drawn by lab. Will have drawn today. Assessment & Plan (01/19/2018 4:29 PM LAND SURVEYING PARTY CHIEF): Anti-ccp ab 24 per labs in Aug 2017. Uncertain significance of this low positive value although may represent early RA although at this time I see no obvious clinical evidence of RA or other inflammatory process. Will repeat serology and obtain US left hand/wrist to look for inflammatory changes. Immunizations Name Administration Dates Next Due Influenza, Quadrivalent, Spl it, Preservative Free, Intramuscular 11/09/2023 Influenza, Trivalent, IM (MDV) 09/11/2021 Social History Tobacco Use Types Packs/Day Years [...] on file Legal Sex Male 4:07 AM LAND SURVEYING PARTY CHIEF Gender Identity Male 04/24/2019 8:46 AM CDT Sexual Orientation Not on file Last Filed Vital Signs Vital Sign Reading Time Taken Comments Blood Pressure 122/86 12/13/2024 11:21 AM LAND SURVEYING PARTY CHIEF Pulse 101 12/13/2024 11:21 AM LAND SURVEYING PARTY CHIEF Temperature 36.6 ??C (97.8 ??F) 12/13/2024 11:[address] Respiratory Rate 18 12/13/2024 11:21 AM LAND SURVEYING PARTY CHIEF Oxygen Saturation 97% 12/13/2024 11:21 AM LAND SURVEYING PARTY CHIEF Inhaled Oxygen Concentration - - Weight 132 kg (291 lb 1.6 oz) 12/13/2024 11:21 A M LAND SURVEYING PARTY CHIEF Height 185.4 cm (6' 1 ) 12/13/2024 11:21 AM LAND SURVEYING PARTY CHIEF Body Mass Index 38.41 12/13/2024 11:21 AM LAND SURVEYING PARTY CHIEF Plan of Treatment Not on file Procedures Procedure Name Priority Date/Time Associated Diagnosis Comments HEPATITIS C ANTIBODY Routine 01/19/2018 3:57 PM LAND SURVEYING PARTY CHIEF from Last 3 Months or Most Recently Relevant to Health Maintenance Results * Hepatitis C antibody (01/19/2018 3:57 PM LAND SURVEYING PARTY CHIEF) Hep C Ab Non-Reactiv e Non-Reactiv e [facility] Blood specimen (specimen) 01/19/2018 3:57 PM LAND SURVEYING PARTY CHIEF 01/19/2018 9:03 PM LAND SURVEYING PARTY CHIEF Narrative [facility] - 01/19/2018 9:55 PM LAND SURVEYING PARTY CHIEF us Bart Ramos MD LAB MICROBIOLOGY - GENER AL ORDERABLES Final Result [facility] [address] [place] [address] from Last 3 Months or Most Recently Relevant to Health Maintenance Insurance [facility] CHOICE PLUS [facility] CHOICE PLUS [facility] CHOICE PLUS [facility] CHOICE PLUS Care Teams Television Equipment Operator Relationship Specialty Start Date End Date Mayte Newby NP [address] [facility] [address] [place] [address] PCP - General Family Medicine 12/03/24 Bart Ramos MD [address] [place] [address] Consulting Physician Rheumatology 01/06/18 Vincent Donohue MD [address] [place] [address] Referring Physician Neuromuscular Medicine 05/29/19 Sridevi Campos NP [address] [place] [address] Nurse Practitioner Pain Management 05/29/19
--- OUTSIDE RECORDS SUMMARY | 2024-12-13 13:38 | XMS_ITS | Encounter Summary ---
Author Organization [facility] Address [address] [place] [address] Care Team Providers Care Lunchroom Worker Name Role Phone Bart Ramos MD Unavailable [phone] JaydeVincent ho MD Unavailable [phone] Sridevi Campos NP Unavailable [phone] Mayte Newby NP Primary Care Provider [phone] Encounter Details Date Type Department Care Team (Late st Contact Info) Description 12/13/2024 12:00 PM CRUSHED STONE GRADER Lab [facility] Outpatient Lab at [address] [address] Gastroesophageal reflux disease without esophagitis (Primary Dx) Social History Tobacco Use Types Packs/Day Years [...] on file Legal Sex Male 4:07 AM CRUSHED STONE GRADER Gender Identity Male 04/24/2019 8:46 AM CDT Sexual Orientation Not on file documented as of this encounter Plan of Treatment Not on file documented as of this encounter Visit Diagnoses Diagnosis Gastroesophageal reflux disease without esophagitis- Primary Esophageal reflux documented in this encounter Care Teams Lunchroom Worker Relationship Specialty Start Date End Date Mayte Newby NP [address] [facility] [address] [place] [address] PCP - General Family Medicine 12/03/24 Bart Ramos MD [address] [place] [address] Consulting Physician Rheumatology 01/06/18 Vincent Donohue MD [address] [place] [address] Referring Physician Neuromuscular Medicine 05/29/19 Sridevi Campos NP [address] [place] [address] Nurse Practitioner Pain Management 05/29/19 documented as of this encounter
== END 2024-12-13 12:49 | disposition home or self-care (01) ==
PROVIDERS: PCP Nurse Practitioner Family; Visit Provider Nurse Practitioner Family
DX: K58.9 Irritable bowel syndrome, unspecified (principal); R10.32 Left lower quadrant pain; K76.0 Fatty (change of) liver, not elsewhere classified
CPT/HCPCS: 74176

== ENCOUNTER 2025-04-02 15:17 | Outpatient (CLI) | payer OTHER, SELFPAY ==
--- NOTE | ~2025-04-02 | XR_ITS ---
Thoracic spine: Clinical Indication: Segmental and somatic dysfunction of the thoracic region AP and lateral views were performed. No fracture is seen. There is normal alignment of the vertebrae. The intervertebral disc spaces appe ar normal. Paravertebral soft tissues appear normal. Impression: No significant abnormalities noted. Reviewed, dictated and finalized at [facility]. Impression: No significant abnormalities noted.
--- NOTE | ~2025-04-02 | XR_ITS ---
Lumbosacral Spine: AP and lateral views Clinical History: Pain Findings: The normal lordotic curve is maintained. The vertebral bodies and posterior elements are i ntact. The intervertebral disc spaces are preserved. Moderate to advanced facet arthropathy present from L3 through S1. The sacroiliac joints are normally outlined. Impression: Facet arthropathy, as above. Reviewed, dictated and finalized at location . Impression: Facet arthropathy, as above.
--- NOTE | ~2025-04-02 | XR_ITS ---
Cervical Spine: AP, lateral, open-mouth views Clinical History: Pain Findings: The normal lordotic curve is maintained. The vertebral bodies and posterior elements appea r intact. There are minimal degenerative disc changes. There are mild facet joint degenerative change s. Pre-vertebral soft tissues are unremarkable. Impression: Mild degenerative change, as above. Reviewed, dictated and finalized at location . Impression: Mild degenerative change, as above.
== END 2025-04-02 15:18 | disposition home or self-care (01) ==
PROVIDERS: PCP Nurse Practitioner Family
DX: M99.01 Segmental and somatic dysfunction of cervical region (principal); M99.02 Segmental and somatic dysfunction of thoracic region; M99.03 Segmental and somatic dysfunction of lumbar region; M50.30 Other cervical disc degeneration, unspecified cervical region; M54.15 Radiculopathy, thoracolumbar region; M54.16 Radiculopathy, lumbar region
CPT/HCPCS: 72040; 72070; 72100